=== PATIENT | male | born 1990 | race Caucasian/White ===

== ENCOUNTER 2019-06-11 19:48 | Emergency (ER) | payer OTHER ==
[~2019-06-11] VITALS: Ht 180.3 cm; Wt 102.1 kg
[~2019-06-11 19:48] MED LIST: CIPRO750 MG; DIOVAN320 MG; LIPITOR20 MG; NORVASC5 MG; SEPTRA DS TABLE1 TAB PO
== END 2019-06-11 22:28 | disposition home or self-care (01) ==
LOC: ER 19:48
DX: B34.9 Viral infection, unspecified (principal); I10 Essential (primary) hypertension